=== PATIENT | male | born 1945 | race Caucasian/White ===

== ENCOUNTER 2020-03-17 11:53 | Day surgery (SDC) | payer MEDICARE, BC ==
[2020-03-16 14:19] LABS: BASOPHILS % (AUTO) 0.8 % (0-1); EOSINOPHILS # (AUTO) 0.3 X10'3 (0-0.9); EOSINOPHILS % (AUTO) 4.6 % (0-6); HEMATOCRIT 44.2 % (42.0-52.0); HEMOGLOBIN 14.5 g/dl (14.0-17.9); LYMPHOCYTES # (AUTO) 1.3 X10'3 (1.1-4.8); LYMPHOCYTES % (AUTO) 20.5 % (21-51); MEAN CORPUSCULAR HEMOGLOBIN 31.4 PG (27.0-31.0); MEAN CORPUSCULAR HGB CONC 32.8 g/dL (33.0-36.5); MEAN CORPUSCULAR VOLUME 95.6 FL (78-98); MEAN PLATELET VOLUME 10.1 FL (7.4-10.4); MONOCYTES # (AUTO) 0.5 X10'3 (0-0.9); MONOCYTES % (AUTO) 8.1 % (2-12); PLATELET COUNT 152 X10'3 (140-440); RED BLOOD COUNT 4.62 X10'6 (4.70-6.10); RED CELL DISTRIBUTION WIDTH 14.6 % (11.5-14.5); WHITE BLOOD COUNT 6.1 X10'3 (4.5-11.0)
[2020-03-16 14:31] LABS: PARTIAL THROMBOPLASTIN TIME 27 SECONDS (22-32)
[2020-03-16 14:41] LABS: ALBUMIN 3.6 G/DL (3.4-5.0); ANION GAP 8 (8-16); BLOOD UREA NITROGEN 18 MG/DL (7-18); BUN/CREATININE RATIO 16.2 (5.4-32.0); CALCIUM 9.1 MG/DL (8.5-10.1); CHLORIDE 108 MMOL/L (99-107); CREATININE 1.11 MG/DL (0.60-1.10); GLUCOSE 120 MG/DL (70-104); POTASSIUM 4.3 MMOL/L (3.5-5.1); SODIUM 141 MMOL/L (135-145); eGFR 65 ML/MIN
[~2020-03-17] VITALS: Ht 172.7 cm; Wt 116.5 kg
[2020-03-17] VITALS (11 sets, daily range): BP systolic 105–150; BP diastolic 58–94
[~2020-03-17 11:53] MED LIST: ASPI-1264 PO; FLO0.4C PO; METO-539 PO; VITC500T PO
[2020-03-17] MEDS ORDERED: diphenhydrAMINE 25mg capsule PO PRN (12:05)
[2020-03-17] MEDS ORDERED: acetylcysteine 200 MG/ml 4ml vial PO PRN (12:05)
[2020-03-17] MEDS ORDERED: normal saline 1,000 ML IV SCH (12:05)
[2020-03-17] MEDS ORDERED: CALC-854 PO (12:27)
[2020-03-17] MEDS ORDERED: OMEG1CAP13 PO (12:27)
[2020-03-17] MEDS ORDERED: CHOL10006 PO (12:27)
[2020-03-17] MEDS ORDERED: METO50TA7 PO (12:27)
[2020-03-17] MEDS ORDERED: ATOR20TA66 PO (12:27)
[2020-03-17] MEDS ORDERED: midazolam 2 mg/2 ml injection ONE (12:33)
[2020-03-17] MEDS ORDERED: iohexol 350 MG/ML 50ML vial IV ONE ×2 (12:34→13:48)
[2020-03-17] MEDS ORDERED: iohexol 350MG/ML 100ml bottle IV ONE (12:34)
[2020-03-17] MEDS ORDERED: fentaNYL/PF 50MCG/1 ML 2ML syringe ONE (12:34)
[2020-03-17] MEDS ORDERED: LIDOcaine 1% (10mg/ml)w/preservative injection 20ml MDV ONE (12:34)
[2020-03-17] MEDS ORDERED: heparin 1,000unit/ml 10ml vial 10 ML ONE (12:37)
[2020-03-17] MEDS ORDERED: verapamil 2.5 mg/ml inj IV ONE (12:37)
[2020-03-17] MEDS ORDERED: nitroGLYCERIN-Tridil 50MG/D5W 250 ML IV ONE (12:37)
[2020-03-17 14:01] LABS: ISTAT HGB ART 13.9 g/dl (14.0-18.0); ISTAT Hct ART 41 %PCV (42-52); ISTAT O2 SATURATION ARTERIAL 94 % (95-98); ISTAT SOURCE ART
[2020-03-17 14:01] LABS: ISTAT Hct MIX 40 %PCV (42-52); ISTAT O2 SATURATION MIX VENOUS 61 % (60-80); ISTAT SOURCE MIX
== END 2020-03-17 19:00 | disposition home or self-care (01) ==
LOC: SSTAY O 11:53
PROVIDERS: ATTEND Internal Medicine Cardiovascular Disease
DX: R94.39 Abnormal result of other cardiovascular function study (principal); I25.10 Atherosclerotic heart disease of native coronary artery without angina pectoris; I10 Essential (primary) hypertension; E78.49 Other hyperlipidemia; Z79.899 Other long term (current) drug therapy; Z79.82 Long term (current) use of aspirin; Z98.890 Other specified postprocedural states; Z79.01 Long term (current) use of anticoagulants; R06.02 Shortness of breath
CPT/HCPCS: 36415; 80048; 82803; 83880; 85014; 85025; 85610; 85730; 93005; 93460; 99152; 99153; C1769; C1894; J1644; J2001; J2250; J3010; J7030; Q0163; Q9967; 36217; A5120; J3490